=== PATIENT | male | born 1975 | race Two or more races ===

== ENCOUNTER 2019-03-09 09:44 | Inpatient (IN) | payer SELFPAY ==
[~2019-03-09] VITALS: Ht 160 cm; Wt 78.0 kg
[2019-03-09] MEDS ORDERED: LORAZEPAM 2MG/ML CPJ IV ONE (10:30)
[2019-03-09] MEDS ORDERED: ACETAMINOPHEN 500MG TABLET PO ONE (10:30)
[2019-03-09] MEDS ORDERED: SODIUM CHLORIDE 0.9% 1000ML BAG (SEPSIS BOLUS) IV ONE (10:30)
[2019-03-09] MEDS ORDERED: ACETAMINOPHEN 500MG TABLET ONE (11:00)
[2019-03-09 11:11] LABS: BASOPHILS % 0.4 % (0.0-2.0); HEMATOCRIT. 43.9 % (42.0-52.0); HEMOGLOBIN. 15.1 g/dL (14.0-18.0); LYMPHOCYTES % 13.3 % (20.0-50.0); MEAN CORPUSCULAR HEMOGLOBIN 30.8 pg (28.0-32.0); MEAN CORPUSCULAR VOLUME 89.1 fL (80.0-94.0); MEAN PLATELET VOLUME 9.4 fl (7.4-10.4); MONOCYTES % 12.2 % (2.0-8.0); NEUTROPHILS % 74.1 % (40.0-76.0); PLATELET 159 x1000/uL (130-400); RED BLOOD CELL COUNT 4.92 mill/uL (4.7-6.1); RED CELL DISTRIBUTION WIDTH 13.4 % (11.6-14.6)
[2019-03-09 11:16] LABS: CHLORIDE 105 mEq/L (98-107); PROTHROMBIN TIME 10.7 sec (9.6-11.0)
[2019-03-09] MEDS ORDERED: PIPERACILLIN/TAZOBACTAM 3.375GM/50ML PREMIX IV NR (13:23)
[2019-03-09] MEDS ORDERED: BACLOFEN 10MG TABLET PO ONE (14:00)
[2019-03-09] MEDS ORDERED: IOHEXOL-300 100 ML BOTTLE ONE (15:44)
[2019-03-09 15:57] LABS: CLARITY URINE CLEAR (CLEAR); COLOR URINE YELLOW (YELLOW); KETONES URINE 2+ (NEGATIVE); LEUKOCYTE ESTERASE URINE NEGATIVE (NEGATIVE); NITRITE URINE NEGATIVE (NEGATIVE); OCCULT BLOOD URINE NEGATIVE (NEGATIVE); PROTEIN URINE TRACE (NEGATIVE); SPECIFIC GRAVITY URINE 1.042 (1.005-1.030)
[2019-03-09] MEDS ORDERED: ACETAMINOPHEN 650MG/20.3ML UDC PO PRN (16:30)
[2019-03-09] MEDS ORDERED: IPRATROPIUM/ALBUTEROL 0.5-3(2.5)MG/3ML NEB HHN PRN (17:15)
[2019-03-09] MEDS ORDERED: CLONIDINE 0.1MG TABLET PO PRN (17:15)
[2019-03-09] MEDS ORDERED: GUAIFENESIN 200MG/10ML SUGAR FREE UDC PO PRN (17:15)
[2019-03-09] MEDS ORDERED: PHENOL/SODIUM PHENOLATE 1.4% SRPAY 177ML MM PRN (17:15)
[2019-03-09] MEDS ORDERED: DOCUSATE SODIUM 100MG CAPSULE PO PRN (17:15)
[2019-03-09] MEDS ORDERED: HYDROCODONE/ACETAMINOPHEN 5/325MG TABLET PO PRN (17:15)
[2019-03-09] MEDS ORDERED: ONDANSETRON HCL 4MG/2ML INJ IV PRN (17:15)
[2019-03-09] MEDS ORDERED: METRONIDAZOLE 500 MG PREMIX 100 ML IV NR (18:30)
[2019-03-09] MEDS ORDERED: CEFTRIAXONE 1 G PREMIX 50 ML IV NR (18:30)
[2019-03-09] MEDS: SODIUM CHLORIDE 0.9% 1,000 ML IV SCH ×2 (18:40→23:33)
[2019-03-09 21:00] VITALS: BP 113/68
[2019-03-09] MEDS ORDERED: CHLORPROMAZINE HCL 25 MG TABLET PO NR (21:00)
[2019-03-09] MEDS: ACETAMINOPHEN 325MG TABLET PO PRN (21:37)
[2019-03-09] MEDS: LORAZEPAM 0.5MG TABLET PO PRN (21:37)
[2019-03-09] MEDS: CHLORPROMAZINE HCL 25 MG TABLET PO SCH (22:30)
[2019-03-10] VITALS: BP 99/67
[2019-03-10] MEDS ORDERED: INFLUENZA VIRUS VACCINE(AFLURIA) 0.5ML SYR IM ONE (00:30)
[2019-03-10] MEDS: METRONIDAZOLE 500 MG PREMIX 100 ML IV SCH ×2 (01:25→12:10)
[2019-03-10] MEDS: LORAZEPAM 0.5MG TABLET PO PRN (01:46)
[2019-03-10 02:32] LABS: *AMPHETAMINES SCREEN URINE NEGATIVE (NEGATIVE); *BARBITURATES SCREEN URINE NEGATIVE (NEGATIVE); *BENZODIAZEPINES SCREEN URINE NEGATIVE (NEGATIVE); *COCAINE SCREEN URINE NEGATIVE (NEGATIVE); METHADONE URINE SCREEN NEGATIVE (NEGATIVE); OPIATES URINE SCREEN PRESUMTIVE POSITIVE (NEGATIVE)
[2019-03-10 02:33] LABS: CANNABINOID URINE SCREEN NEGATIVE (NEGATIVE); PHENCYCLIDINE URINE SCREEN NEGATIVE (NEGATIVE)
[2019-03-10 04:00] VITALS: BP 111/66
[2019-03-10] MEDS: CHLORPROMAZINE HCL 25 MG TABLET PO SCH ×2 (05:13→14:27)
[2019-03-10] MEDS: ACETAMINOPHEN 325MG TABLET PO PRN (05:41)
[2019-03-10] MEDS ORDERED: CHLORPROMAZINE HCL 25 MG TABLET PO SCH (06:00)
[2019-03-10 08:00] VITALS: BP 135/78
[2019-03-10 09:20] LABS: BASOPHILS % 0.2 % (0.0-2.0); HEMATOCRIT. 41.3 % (42.0-52.0); HEMOGLOBIN. 14.1 g/dL (14.0-18.0); LYMPHOCYTES % 19.3 % (20.0-50.0); MEAN CORPUSCULAR HEMOGLOBIN 30.3 pg (28.0-32.0); MEAN CORPUSCULAR VOLUME 88.7 fL (80.0-94.0); MEAN PLATELET VOLUME 9.3 fl (7.4-10.4); MONOCYTES % 7.6 % (2.0-8.0); NEUTROPHILS % 72.9 % (40.0-76.0); PLATELET 142 x1000/uL (130-400); RED BLOOD CELL COUNT 4.66 mill/uL (4.7-6.1); RED CELL DISTRIBUTION WIDTH 13.3 % (11.6-14.6)
[2019-03-10 10:03] LABS: CHLORIDE 106 mEq/L (98-107)
[2019-03-10 10:09] LABS: PHOSPHORUS 2.3 mg/dL (2.5-4.9)
[2019-03-10 12:00] VITALS: BP 97/55
[2019-03-10] MEDS: SODIUM CHLORIDE 0.9% 1,000 ML IV SCH (14:27)
[2019-03-10] MEDS ORDERED: PHEN177S75 MM (15:00)
[2019-03-10] MEDS ORDERED: DEXTL PO (15:00)
[2019-03-10] MEDS ORDERED: LEVO750T46 MT (15:00)
[2019-03-10] MEDS ORDERED: METR500T MT (15:00)
[2019-03-10] MEDS ORDERED: BACL-141 MT (15:00)
[2019-03-10] MEDS ORDERED: ACET650S25 PO (15:00)
[2019-03-10] MEDS ORDERED: TH25 PO (15:00)
[2019-03-10 15:35] VITALS: BP 97/55
[2019-03-10 16:00] VITALS: BP 91/43
[2019-03-10] MEDS ORDERED: CEFTRIAXONE 1 G PREMIX 50 ML IV SCH (18:00)
== END 2019-03-10 17:20 | disposition home or self-care (01) | DRG 720 ==
LOC: ER 09:58 → 5WST 13:46 → EDBEDREQSVC 13:53 → EDBEDREQ 13:53 → ENRESERV 19:17 → EDBEDREQTM 19:33 → 6EST 03-10 06:06
PROVIDERS: ADMIT Internal Medicine; ATTEND Internal Medicine
DX: A41.9 Sepsis, unspecified organism (principal); K76.0 Fatty (change of) liver, not elsewhere classified; E87.1 Hypo-osmolality and hyponatremia; D72.821 Monocytosis (symptomatic); J06.9 Acute upper respiratory infection, unspecified; J32.9 Chronic sinusitis, unspecified; R82.4 Acetonuria; E66.9 Obesity, unspecified; Z68.30 Body mass index [BMI] 30.0-30.9, adult; K57.32 Diverticulitis of large intestine without perforation or abscess without bleeding
CPT/HCPCS: 36415; 71045; 74177; 80048; 80053; 80305; 81003; 83605; 83735; 84100; 84145; 84484; 85025; 87804; 93005; 96365; 96367; 96375; 99291; J0696; J2060; J2405; J2543; J3490; J7030; Q0161; Q9967